=== PATIENT | female | born 1975 | race Caucasian/White ===

== ENCOUNTER → 2017-07-04 | Outpatient (REF) ==
[~2017-07-04] MED LIST: ASPI81TA PO; ASPIRIN E.C. 8181 MG PO; B-1250 MCG PO; BRILINTA90 MG PO; CHELATED IRON27 MG PO; FOLIC ACID 11 MG/TA1 PO; LIPITOR 80MG80 MG PO; LOPRESSOR 225 MG/TAB PO; LOPRESSOR 550 MG/TAB PO; MOTRIN 800800 MG/TAB PO; MULTIPLE VITAMI1 CAP PO; NATURE'S BLEND F1 MG PO; NITROQUICK0.4 MG SL; PEPCID 20MG TAB20 MG PO; PERCOCET 325 MG1 TA2 PO; PLAVIX 75MG TAB75 MG PO; PRINIVIL2.5 MG PO; THYROID PO; THYROID SUPPLEMENT PO; ULTRAM50 MG PO; VITAMIN B COMPL1 T16 PO; VITAMIN D1000 IU PO; VITAMIN E1000 U/CAP PO; ZANTAC 150MG T150 MG PO; ZANTAC 7575 MG PO; ZOCOR40 MG PO; [UNRECOGNIZED DRUG - OTHER]
== END ==
LOC: ZLAB.WCH 19:01
DX: Z01.89 Encounter for other specified special examinations (principal)